=== PATIENT | male | born 1950 | race Caucasian/White ===

== ENCOUNTER → 2017-08-05 | Outpatient (REF) | payer MEDICARE, OTHER ==
[2015-11-24 08:44] VITALS: BMI 30.1
[~2017-08-05] MED LIST: ATOR10TA24 PO; FOLI-68 PO; HYD2 PO; KET10 PO; LANS30CA70; LISI-368 PO; LISI1TAB61 PO; LOR5/325 PO; MET500 PO; METF-1 PO; MULT-1379 PO; MYLL PO; NIC10R INH; NOR10 PO; OXYC5TAB38 PO; THIA100T6 PO; TRAZ-156 PO
[2017-08-05 12:48] LABS: PLATELET COUNT, AUTOMATED 158 K/uL (150-450)
== END ==
PROVIDERS: ATTEND Nurse Practitioner Family
DX: R50.9 Fever, unspecified (principal)
CPT/HCPCS: 82040; 82247; 82310; 82374; 82435; 82565; 82947; 84075; 84132; 84155; 84295; 84450; 84460; 84520; 85025

== ENCOUNTER → 2017-10-17 | Outpatient (CLI) | payer MEDICARE, OTHER ==
[2015-11-24 08:44] VITALS: BMI 30.1
--- NOTE | 2017-10-17 17:32 | RADIOLOGY IMAGING REPORT ---
FACILITY: [facility] PATIENT NAME: John Alberto : 1950 MR: [id number] V: [id number] EXAM DATE: ORDERING PHYSICIAN: DAVID HAYES TECHNOLOGIST: Location: [facility] - [place], [place] Patient: John Alberto : 1950 Visit/Account:[id number] Date of Sevice: 10/17/2017 MRI left shoulder Indication: Labral tear Comparison: MRI left shoulder from 03/09/2017. Technique: Multiplanar multisequence MR images were obtained through the left shoulder. Findings: Rotator cuff: Moderate tendinopathy as well as moderate intrasubstance tearing distal anterior infraspinatus seen. There is also minimal bursal surface fraying distal supraspinatus. This overall appears slightly wors ened when compared to prior exam. Biceps tendon: There is medial dislocation biceps tendon from the superior bicipital groove similar to prior exam wi th also moderate tendinopathy intra-articular portion of the biceps tendon. AC joint and acromion: Unchanged moderate to severe AC joint degenerative changes. Acromion has an unremarkable appearance. Labrum and capsular ligaments: Irregular nondisplaced tearing superior labrum extends from the biceps labral anchor to the posterior superior labrum. Capsular ligaments are intact with no evidence of focal abnormality. Bones and cartilage: No evidence of abnormal marrow edema or focal bony lesions. No evidence of any bony erosions or carlos ostitis. No focal chondral defect glenohumeral joint cartilage.. Effusion, bursitis: Small likely reactive effusion glenohumeral joint. There is a mild amount of fluid seen within the subacromial/subdeltoid bursa. IMPRESSION: 1. Persistent medial dislocation biceps from the superior bicipital groove. 2. Slightly worsened appearance of the moderate intrasubstance tearing distal anterior infraspinatus. 3. Unchanged moderate to severe AC joint degenerative changes. Report Dictated By: Matias Leal MD at 10/17/2017 5:07 PM Report E-Signed By: Matias Leal MD at 10/17/2017 5:27 PM WSN:[id number]
== END ==
LOC: MRI 00:54
PROVIDERS: ATTEND Orthopaedic Surgery Sports Medicine
DX: M25.512 Pain in left shoulder (principal); M75.122 Complete rotator cuff tear or rupture of left shoulder, not specified as traumatic